=== PATIENT | female | born 1960 | race American Indian/Alaskan Native ===

== ENCOUNTER 2016-12-10 00:11 | Emergency (ER) | payer OTHER ==
[2016-12-10 01:01] LABS: Basophils % (Auto) 0.4 % (0.0-1.8); Eosinophils % (Auto) 0.3 % (0.0-4.3); Hematocrit 40.3 % (30.3-42.9); Hemoglobin 12.9 gm/dl (10.1-14.3); Mean Corpuscular HGB Conc 32 % (30-34); Mean Corpuscular Hemoglobin 27 pg (28-32); Mean Corpuscular Volume 86 fl (79-97); Platelet Count 269 K/mm3 (140-440); Red Cell Distribution Width 14.4 % (13.2-15.2); White Blood Count 14.4 K/mm3 (4.5-11.0)
[2016-12-10 01:13] LABS: Alanine Aminotransferase 14 units/L (7-56); Albumin 4.5 g/dL (3.9-5); Albumin/Globulin Ratio 1.3 %; Alkaline Phosphatase 67 units/L (35-129); Anion Gap 20 mmol/L; Blood Urea Nitrogen 20 mg/dL (7-17); Calcium 9.6 mg/dL (8.4-10.2); Carbon Dioxide 24 mmol/L (22-30); Chloride 102.1 mmol/L (98-107); Glucose 96 mg/dL (65-100); Lipase 71 units/L (13-60); Potassium 4.3 mmol/L (3.6-5.0); Sodium 142 mmol/L (137-145)
[2016-12-10 05:26] LABS: Bilirubin,Urine NEG (Negative); Blood,Urine NEG (Negative); Ketones,Urine NEG (Negative); Leukocyte Esterase,Urine LG (Negative); Mucus,Urine FEW /HPF; Nitrite,Urine NEG (Negative); Protein,Urine <15 mg/dL mg/dL (Negative); Urobilinogen,Urine < 2.0 mg/dL (<2.0)
[2016-12-10] MEDS ORDERED: DULCOLAX PR ONE (06:38)
--- NOTE | 2016-12-10 06:57 | Emergency Department Report ---
HPI - General Chief Complaint: Abdominal Pain Time Seen by Provider: 12/10/16 06:16 - HPI HPI: patient states she has been constipated for the past three days, no loose stools , no diarrhea, no bm. patient has not taken any meds over the counter for her symptoms. patient with recent psych hospitalization at [facility]. no fever, no n/v , no bloody stools. Patient also c/o burning with urination, suprapubic discomfort. ED Past Medical Hx - Past Medical History Previous Medical History?: No Hx Psychiatric Treatment: Yes (bipolar) Additional medical history: d/c'd from [facility] 12/09/2016 for ingesting 15 vitamins on 12/03-03/2017 - Surgical History Past Surgical History?: Yes Additional Surgical History: R fallopian tube removed ? - Social History Smoking Status: Current Every Day Smoker Substance Use Type: None - Medications Home Medications: Home Medications Medication Instructions Recorded Confirmed Last Taken Type Bisacodyl [Dulcolax suppos] 10 mg DE ONCE #5 supp.rect 12/10/16 Unknown Rx Bisacodyl [Dulcolax] 5 mg PO DAILY PRN #14 tab 12/10/16 Unknown Rx Ciprofloxacin HCl [Ciprofloxacin 500 mg PO Q12H #14 tab 12/10/16 Unknown Rx TAB] ED Review of Systems ROS: Stated complaint: CONSTIPATION/ABD PAIN/PAIN IN URINATION Other details as noted in HPI Comment: All other systems reviewed and negative Endocrine: see HPI Gastrointestinal: abdominal pain Genitourinary: as per HPI Physical Exam - Physical Exam Vital Signs: Vital Signs 12/10/16 12/10/16 12/10/16 00:18 04:07 05:39 Temperature 98.7 F 98.5 F Pulse Rate 104 H 95 H 82 Respiratory 20 18 11 L Rate Blood Pressure 151/88 157/84 Blood Pressure [Left] O2 Sat by Pulse 97 99 99 Oximetry 12/10/16 12/10/16 12/10/16 05:40 05:50 05:58 Temperature 98.1 F Pulse Rate 83 72 78 Respiratory 13 15 18 Rate Blood Pressure 139/77 136/71 Blood Pressure 139/77 [Left] O2 Sat by Pulse 99 99 100 Oximetry 12/10/16 12/10/16 06:00 06:10 Temperature Pulse Rate 90 71 Respiratory 19 17 Rate Blood Pressure 141/78 141/78 Blood Pressure [Left] O2 Sat by Pulse 100 100 Oximetry Physical Exam: gen: alert and oriented x3, Tearful heent: perrla, eomi cv: rrr, nl s1, s2 lungs: cta bila abd: s,nt,nd, pos bs rectal: hard stool at the rectal vault, removed by Misha ext: no edema gu: pt refused neuro: no deficits psych:normal mood and affect skin: normal turgor ED Course Vital Signs 12/10/16 12/10/16 12/10/16 00:18 04:07 05:39 Temperature 98.7 F 98.5 F Pulse Rate 104 H 95 H 82 Respiratory 20 18 11 L Rate Blood Pressure 151/88 157/84 Blood Pressure [Left] O2 Sat by Pulse 97 99 99 Oximetry 12/10/16 12/10/16 12/10/16 05:40 05:50 05:58 Temperature 98.1 F Pulse Rate 83 72 78 Respiratory 13 15 18 Rate Blood Pressure 139/77 136/71 Blood Pressure 139/77 [Left] O2 Sat by Pulse 99 99 100 Oximetry 12/10/16 12/10/16 06:00 06:10 Temperature Pulse Rate 90 71 Respiratory 19 17 Rate Blood Pressure 141/78 141/78 Blood Pressure [Left] O2 Sat by Pulse 100 100 Oximetry ED Medical Decision Making - Lab Data Result diagrams: 12/10/16 00:38 12/10/16 00:38 Critical care attestation.: If time is entered above; I have spent that time in minutes in the direct care of this critically ill patient, excluding procedure time. ED Disposition Clinical Impression: Fecal impaction in rectum, UTI (urinary tract infection) Disposition: DC- TO HOME OR SELFCARE Is pt being admited?: No Does the pt Need Aspirin: No Condition: Stable Instructions: Abdominal Pain (ED), Constipation (ED), High Fiber Diet (ED) Prescriptions: Bisacodyl [Dulcolax] 5 mg PO DAILY PRN #14 tab PRN Reason: Constipation Bisacodyl [Dulcolax suppos] 10 mg DE ONCE #5 supp.rect Ciprofloxacin HCl [Ciprofloxacin TAB] 500 mg PO Q12H #14 tab Referrals: PRIMARY CARE, [Primary Care Provider] - 3-5 Days
[2016-12-10] MEDS ORDERED: CITRATE OF MAGNESIA PO ONE (07:01)
[2016-12-10 07:13] VITALS: BP 120/56
== END 2016-12-10 07:13 | disposition home or self-care (01) ==
LOC: ED 00:11
DX: K56.41 Fecal impaction (principal); N39.0 Urinary tract infection, site not specified; F17.210 Nicotine dependence, cigarettes, uncomplicated
CPT/HCPCS: 36415; 80053; 81001; 83690; 85025; 99284